=== PATIENT | female | born 1950 | race Hispanic/Latino ===

== ENCOUNTER 2021-07-12 18:09 | Inpatient (IN) | payer OTHER, MEDICARE ==
[~2021-07-12] VITALS: Ht 152.4 cm; Wt 68.1 kg
[~2021-07-12 18:09] MED LIST: DIAZ2.5K2 PO; ESOM40CA PO; FESO8TAB PO; GABA-529 PO; SERT-440 PO; TRAZ-187 PO
[2021-07-12] MEDS ORDERED: HALOPERIDOL INJ 5 MG/ML VIAL ONE (18:21)
[2021-07-12] MEDS ORDERED: DiphenhydrAMINE HCL 50 MG/ML VIAL ONE (18:21)
[2021-07-12] MEDS ORDERED: LORAZEPAM 2 MG/ML 1 ML VIAL ONE (18:22)
[2021-07-12] MEDS ORDERED: LORAZEPAM 2 MG/ML 1 ML VIAL IVP ONE ×2 (18:30→19:00)
[2021-07-12] MEDS ORDERED: HALOPERIDOL INJ 5 MG/ML VIAL IM SCH (18:30)
[2021-07-12] MEDS ORDERED: DiphenhydrAMINE HCL 50 MG/ML VIAL IV ONE (18:30)
[2021-07-12 20:10] LABS: BASOPHILS % (AUTO) 0.2 % (0.0-5.0); EOSINOPHILS % (AUTO) 0.3 % (0.0-8.0); HEMATOCRIT 32.3 % (36-48); MEAN CORPUSCULAR HEMOGLOBIN 31.2 pg (27.0-33.0); MEAN CORPUSCULAR HGB CONC 34.7 g/dL (32.0-36.0); MONOCYTES % (AUTO) 7.8 % (3.0-13.0); NEUTROPHILS % (AUTO) 78.4 % (40.0-77.0); PLATELET COUNT (AUTO) 329 K/uL (130-400); RED BLOOD CELL COUNT(AUTO) 3.59 MIL/uL (4.00-5.50); RED CELL DISTRIBUTION WIDTH 13.1 % (11.0-15.5); WHITE BLOOD COUNT (AUTO) 13.6 K/uL (4.8-10.8)
[2021-07-12 20:25] LABS: INR 1.01 (0.85-1.15)
[2021-07-12 20:32] LABS: CREATININE 0.9 mg/dL (0.5-1.5)
[2021-07-12 20:37] LABS: ALBUMIN 3.7 g/dL (3.5-5.0); BILIRUBIN,TOTAL 0.5 mg/dL (0.2-1.0); TOTAL PROTEIN, SERUM 6.7 g/dL (6.0-8.3)
[2021-07-12 21:16] LABS: ACETAMINOPHEN 4 mcg/mL (10-30)
[2021-07-12 21:17] LABS: SALICYLATE < 2.8 mg/dL (2.8-20.0)
[2021-07-12 21:23] LABS: AMMONIA 11 umol/L (11-32)
[2021-07-12 22:03] LABS: APPEARANCE,URINE Clear (CLEAR); BILIRUBIN,URINE Negative (NEGATIVE); COLOR,URINE Yellow (YELLOW); GLUCOSE, URINE (UA) Negative (NEGATIVE); KETONES,URINE Trace mg/dL (NEGATIVE); LEUKOCYTE ESTERASE ,URINE Negative (NEGATIVE); NITRATE,URINE Negative (NEGATIVE); OCCULT BLOOD,URINE Trace (NEGATIVE); PH,URINE 5.5 (5.0-8.0); PROTEIN,URINE Negative (NEGATIVE)
[2021-07-12 22:10] LABS: AMPHET/METH SCREEN,URINE NEGATIVE (NEGATIVE); BARBITURATE SCREEN, URINE NEGATIVE (NEGATIVE); BENZODIAZEPINES SCREEN,URINE NEGATIVE (NEGATIVE); CANNABINOID SCREEN,URINE POSITIVE (NEGATIVE); COCAINE SCREEN,URINE NEGATIVE (NEGATIVE); OPIATE SCREEN,URINE NEGATIVE (NEGATIVE); PHENCYCLIDINE SCREEN,URINE NEGATIVE (NEGATIVE)
[2021-07-12 22:15] LABS: BACTERIA,URINE Rare /HPF (None Seen); MUCUS,URINE Rare LPF (None Seen); SQUAMOUS EPITHELIAL CELL,UR Rare /HPF (0-2); WBC,URINE 0-1 /HPF (0-1)
[2021-07-13] MEDS ORDERED: DONE23TA14 PO (09:27)
[2021-07-13] MEDS ORDERED: MULT-1290 PO (09:27)
[2021-07-13] MEDS ORDERED: ASPI-1114 PO (09:27)
[2021-07-13] MEDS ORDERED: LOSA25TA41 PO (09:27)
[2021-07-13] MEDS ORDERED: METF-444 PO (09:27)
[2021-07-13] MEDS ORDERED: CITA10TA7 PO (09:27)
[2021-07-13] MEDS ORDERED: LORA-192 PO (09:27)
[2021-07-13] MEDS ORDERED: MIRT15TA2 PO (09:27)
[2021-07-13 14:30] VITALS: BP 119/52
[2021-07-13] MEDS ORDERED: 0.9%NACL 1000ML 1,000 ML IV ONE (14:46)
[2021-07-13] MEDS ORDERED: NITROGLYCERIN 0.4 MG SL TAB SL PRN (15:00)
[2021-07-13] MEDS ORDERED: ACETAMINOPHEN 325 MG TAB PO PRN ×2 (15:00)
[2021-07-13] MEDS ORDERED: LACTULOSE 20 GM/30 ML UDCUP PO PRN (15:00)
[2021-07-13] MEDS ORDERED: ONDANSETRON 4MG INJ IV PRN (15:00)
[2021-07-13] MEDS ORDERED: HYDROXYZINE 25 MG TABLET PO PRN (15:00)
[2021-07-13] MEDS: SODIUM BICARB 8.4% 50ML SYRING 150 MEQ in DEXTROSE 5%-WATER 1,000 ML IV SCH (15:41)
[2021-07-13] MEDS ORDERED: IOHEXOL-350 75 ML VIAL IV ONE (16:12)
[2021-07-13] MEDS ORDERED: IOHEXOL-350 50ML VIAL IV ONE (16:12)
[2021-07-13] MEDS: INSULIN HUMULIN R 100 UNIT/ML 3ML SQ SCH ×2 (16:30→20:49)
[2021-07-13 19:00] VITALS: BP 144/64
[2021-07-13] MEDS: FAMOTIDINE 20MG TAB PO SCH (20:31)
[2021-07-13] MEDS: LORAZEPAM 1 MG TABLET PO SCH (20:31)
[2021-07-13] MEDS: OLANZAPINE ODT 5 MG TAB SL SCH (20:31)
[2021-07-13] MEDS: DONEPEZIL HCL 23 MG PO SCH (20:36)
[2021-07-13] MEDS ORDERED: TRAZODONE HCL 50 MG TAB PO SCH (21:00)
[2021-07-14] MEDS ORDERED: ZOLPIDEM TARTRATE 5 MG TAB ONE (01:43)
[2021-07-14] MEDS: SODIUM BICARB 8.4% 50ML SYRING 150 MEQ in DEXTROSE 5%-WATER 1,000 ML IV SCH ×3 (01:50→18:36)
[2021-07-14] MEDS ORDERED: ZOLPIDEM TARTRATE 5 MG TAB PO PRN (02:00)
[2021-07-14 04:59] LABS: MEAN CORPUSCULAR HEMOGLOBIN 30.7 pg (27.0-33.0); MEAN CORPUSCULAR VOLUME 90.4 fL (79-99); RED BLOOD CELL COUNT(AUTO) 3.32 MIL/uL (4.00-5.50); RED CELL DISTRIBUTION WIDTH 13.2 % (11.0-15.5); WHITE BLOOD COUNT (AUTO) 6.9 K/uL (4.8-10.8)
[2021-07-14 05:20] LABS: HEMOGLOBIN A1C 5.8 % (4.0-6.0)
[2021-07-14 05:22] LABS: CREATININE 0.7 mg/dL (0.5-1.5); POTASSIUM 3.3 mmol/L (3.5-5.1); THYROID STIMULATING HORMONE 2.61 uIU/mL (0.36-3.74)
[2021-07-14] MEDS: INSULIN HUMULIN R 100 UNIT/ML 3ML SQ SCH ×4 (06:23→20:56)
[2021-07-14] MEDS: OLANZAPINE ODT 5 MG TAB SL SCH (08:25)
[2021-07-14] MEDS: LOSARTAN 25 MG TABLET PO SCH (08:25)
[2021-07-14] MEDS: FAMOTIDINE 20MG TAB PO SCH ×2 (08:26→20:57)
[2021-07-14] MEDS: LORAZEPAM 1 MG TABLET PO SCH ×2 (08:26→13:05)
[2021-07-14] MEDS: MULTIVITAMIN TABLET PO SCH (08:26)
[2021-07-14] MEDS: CITALOPRAM 20 MG TABLET PO SCH (08:26)
[2021-07-14] MEDS ORDERED: DiphenhydrAMINE HCL 50 MG/ML VIAL ONE ×2 (10:53→12:37)
[2021-07-14] MEDS ORDERED: HALOPERIDOL INJ 5 MG/ML VIAL ONE ×2 (10:53→12:37)
[2021-07-14] MEDS: HALOPERIDOL INJ 5 MG/ML VIAL IM SCH ×2 (11:00→11:58)
[2021-07-14] MEDS ORDERED: 0.9%NACL 1000ML 1,000 ML IV SCH (11:00)
[2021-07-14] MEDS ORDERED: DiphenhydrAMINE HCL 50 MG/ML VIAL IM SCH (11:00)
[2021-07-14] MEDS ORDERED: HALOPERIDOL INJ 5 MG/ML VIAL IM SCH (11:00)
[2021-07-14] MEDS: CEFTRIAXONE 1G VIAL IVP SCH (11:00)
[2021-07-14] MEDS: DiphenhydrAMINE HCL 50 MG/ML VIAL IM SCH ×2 (11:00→11:58)
[2021-07-14] MEDS ORDERED: HYDROXYZINE 25 MG TABLET ONE (11:42)
[2021-07-14] MEDS ORDERED: RISPERIDONE 1 MG TABLET ONE (11:42)
[2021-07-14] MEDS: HYDROXYZINE 25 MG TABLET PO SCH ×2 (11:45→20:57)
[2021-07-14] MEDS ORDERED: DiphenhydrAMINE HCL 50 MG/ML VIAL IM ONE (13:00)
[2021-07-14] MEDS ORDERED: HALOPERIDOL INJ 5 MG/ML VIAL IM ONE (13:00)
[2021-07-14] MEDS ORDERED: HYDROXYZINE 25 MG TABLET PO SCH (14:00)
[2021-07-14] MEDS ORDERED: RISPERIDONE 1 MG TABLET PO SCH ×2 (14:00)
[2021-07-14 20:18] VITALS: BP 163/83
[2021-07-14] MEDS: TRAZODONE HCL 50 MG TAB PO SCH (20:57)
[2021-07-14] MEDS: DONEPEZIL HCL 23 MG PO SCH (21:00)
[2021-07-14 23:57] VITALS: BP 162/76
[2021-07-15] MEDS: SODIUM BICARB 8.4% 50ML SYRING 150 MEQ in DEXTROSE 5%-WATER 1,000 ML IV SCH (02:38)
[2021-07-15] MEDS: HYDROXYZINE 25 MG TABLET PO SCH (05:16)
[2021-07-15 05:49] LABS: BASOPHILS % (AUTO) 0.4 % (0.0-5.0); EOSINOPHILS % (AUTO) 0.9 % (0.0-8.0); HEMATOCRIT 30.5 % (36-48); LYMPHOCYTES % (AUTO) 15.7 % (21.0-51.0); MEAN CORPUSCULAR HEMOGLOBIN 30.9 pg (27.0-33.0); MEAN CORPUSCULAR HGB CONC 33.8 g/dL (32.0-36.0); MEAN CORPUSCULAR VOLUME 91.6 fL (79-99); MONOCYTES % (AUTO) 8.7 % (3.0-13.0); NEUTROPHILS % (AUTO) 74.1 % (40.0-77.0); PLATELET COUNT (AUTO) 232 K/uL (130-400); RED BLOOD CELL COUNT(AUTO) 3.33 MIL/uL (4.00-5.50); RED CELL DISTRIBUTION WIDTH 13.2 % (11.0-15.5); WHITE BLOOD COUNT (AUTO) 4.6 K/uL (4.8-10.8)
[2021-07-15] MEDS: INSULIN HUMULIN R 100 UNIT/ML 3ML SQ SCH ×4 (05:51→20:10)
[2021-07-15 08:00] VITALS: BP 141/83
[2021-07-15 08:25] LABS: ALBUMIN 3.1 g/dL (3.5-5.0); BILIRUBIN,TOTAL 0.6 mg/dL (0.2-1.0); CREATININE 0.6 mg/dL (0.5-1.5); TOTAL PROTEIN, SERUM 5.9 g/dL (6.0-8.3)
[2021-07-15 08:44] LABS: POTASSIUM 2.7 mmol/L (3.5-5.1)
[2021-07-15] MEDS ORDERED: KCL 20 MEQ ERTAB PO ONE ×2 (09:11→09:17)
[2021-07-15] MEDS ORDERED: POTASSIUM CHLORIDE 20MEQ/100ML 100 ML IV ONE (09:13)
[2021-07-15] MEDS: FAMOTIDINE 20MG TAB PO SCH ×2 (09:18→20:08)
[2021-07-15] MEDS: MULTIVITAMIN TABLET PO SCH (09:18)
[2021-07-15] MEDS: CITALOPRAM 20 MG TABLET PO SCH (09:18)
[2021-07-15] MEDS: DONEPEZIL HCL 5 MG TAB PO SCH (09:18)
[2021-07-15] MEDS: LOSARTAN 25 MG TABLET PO SCH (09:20)
[2021-07-15] MEDS ORDERED: MAGNESIUM 2GM PREMIX 50ML 50 ML IV SCH (09:30)
[2021-07-15] MEDS ORDERED: LIDOCAINE HCL-MPF 1% 2ML VIAL IV PRN (09:30)
[2021-07-15] MEDS ORDERED: POTASSIUM CHLORIDE 10% ELIXIR 20 MEQ/15 ML UDCUP PO PRN (09:30)
[2021-07-15] MEDS ORDERED: KCL 20 MEQ ERTAB PO PRN (09:30)
[2021-07-15] MEDS: 0.9%NACL 1000ML 1,000 ML IV SCH ×2 (09:30→17:30)
[2021-07-15] MEDS: BENZTROPINE 0.5MG TAB PO SCH ×2 (11:20→20:08)
[2021-07-15] MEDS: CEFTRIAXONE 1G VIAL IVP SCH (11:20)
[2021-07-15 12:00] VITALS: BP 123/59
[2021-07-15] MEDS: POTASSIUM CHLORIDE 20MEQ/100ML 100 ML IV PRN (14:08)
[2021-07-15 16:00] VITALS: BP 122/53
[2021-07-15 20:00] VITALS: BP 121/69
[2021-07-15] MEDS: TRAZODONE HCL 50 MG TAB PO SCH (20:08)
[2021-07-15] MEDS: DONEPEZIL HCL 23 MG PO SCH (20:10)
[2021-07-15 23:48] VITALS: BP 144/75
[2021-07-16] MEDS: 0.9%NACL 1000ML 1,000 ML IV SCH ×3 (00:33→18:23)
[2021-07-16] MEDS: POTASSIUM CHLORIDE 20MEQ/100ML 100 ML IV PRN (01:46)
[2021-07-16 04:00] VITALS: BP 144/70
[2021-07-16] MEDS: INSULIN HUMULIN R 100 UNIT/ML 3ML SQ SCH ×4 (05:40→19:58)
[2021-07-16 05:50] LABS: BASOPHILS % (AUTO) 0.2 % (0.0-5.0); EOSINOPHILS % (AUTO) 0.8 % (0.0-8.0); HEMATOCRIT 27.2 % (36-48); LYMPHOCYTES % (AUTO) 14.6 % (21.0-51.0); MEAN CORPUSCULAR HEMOGLOBIN 30.7 pg (27.0-33.0); MEAN CORPUSCULAR HGB CONC 33.5 g/dL (32.0-36.0); MEAN CORPUSCULAR VOLUME 91.9 fL (79-99); MONOCYTES % (AUTO) 10.2 % (3.0-13.0); NEUTROPHILS % (AUTO) 73.8 % (40.0-77.0); PLATELET COUNT (AUTO) 214 K/uL (130-400); RED BLOOD CELL COUNT(AUTO) 2.96 MIL/uL (4.00-5.50); RED CELL DISTRIBUTION WIDTH 13.3 % (11.0-15.5); WHITE BLOOD COUNT (AUTO) 4.7 K/uL (4.8-10.8)
[2021-07-16 06:29] LABS: ALBUMIN 2.5 g/dL (3.5-5.0); BILIRUBIN,TOTAL 0.5 mg/dL (0.2-1.0); CREATININE 0.6 mg/dL (0.5-1.5); POTASSIUM 3.8 mmol/L (3.5-5.1); TOTAL PROTEIN, SERUM 5.2 g/dL (6.0-8.3)
[2021-07-16 08:00] VITALS: BP 138/90
[2021-07-16] MEDS: BENZTROPINE 0.5MG TAB PO SCH ×2 (08:08→20:28)
[2021-07-16] MEDS: CITALOPRAM 20 MG TABLET PO SCH (08:09)
[2021-07-16] MEDS: DONEPEZIL HCL 5 MG TAB PO SCH (08:09)
[2021-07-16] MEDS: MULTIVITAMIN TABLET PO SCH (08:09)
[2021-07-16] MEDS: LOSARTAN 25 MG TABLET PO SCH (08:09)
[2021-07-16] MEDS: FAMOTIDINE 20MG TAB PO SCH ×2 (08:09→20:27)
[2021-07-16] MEDS: CEFTRIAXONE 1G VIAL IVP SCH (11:46)
[2021-07-16] MEDS: FLUOXETINE HCL 10 MG CAPSULE PO SCH (15:00)
[2021-07-16] MEDS: ARTIFICAL TEARS SOL 15 ML OU SCH (15:36)
[2021-07-16 20:06] VITALS: BP 154/76
[2021-07-16] MEDS: TRAZODONE HCL 50 MG TAB PO SCH (20:27)
[2021-07-16] MEDS: DONEPEZIL HCL 23 MG PO SCH (20:28)
[2021-07-16 23:29] VITALS: BP 129/53
[2021-07-17] MEDS: 0.9%NACL 1000ML 1,000 ML IV SCH (00:43)
[2021-07-17 03:34] VITALS: BP 124/74
[2021-07-17 04:52] LABS: BASOPHILS % (AUTO) 0.4 % (0.0-5.0); EOSINOPHILS % (AUTO) 2.1 % (0.0-8.0); HEMATOCRIT 30.1 % (36-48); LYMPHOCYTES % (AUTO) 12.5 % (21.0-51.0); MEAN CORPUSCULAR HEMOGLOBIN 30.2 pg (27.0-33.0); MEAN CORPUSCULAR HGB CONC 32.6 g/dL (32.0-36.0); MEAN CORPUSCULAR VOLUME 92.9 fL (79-99); MONOCYTES % (AUTO) 8.4 % (3.0-13.0); NEUTROPHILS % (AUTO) 76.2 % (40.0-77.0); PLATELET COUNT (AUTO) 231 K/uL (130-400); RED BLOOD CELL COUNT(AUTO) 3.24 MIL/uL (4.00-5.50); RED CELL DISTRIBUTION WIDTH 13.2 % (11.0-15.5); WHITE BLOOD COUNT (AUTO) 5.4 K/uL (4.8-10.8)
[2021-07-17 05:04] LABS: ALBUMIN 2.5 g/dL (3.5-5.0); BILIRUBIN,TOTAL 0.6 mg/dL (0.2-1.0); CREATININE 0.5 mg/dL (0.5-1.5); POTASSIUM 3.6 mmol/L (3.5-5.1); TOTAL PROTEIN, SERUM 5.5 g/dL (6.0-8.3)
[2021-07-17] MEDS: INSULIN HUMULIN R 100 UNIT/ML 3ML SQ SCH ×4 (05:17→21:00)
[2021-07-17 08:07] VITALS: BP 123/63
[2021-07-17] MEDS ORDERED: FLUOXETINE HCL 10 MG CAPSULE PO SCH (09:00)
[2021-07-17] MEDS: ARTIFICAL TEARS SOL 15 ML OU SCH (09:05)
[2021-07-17] MEDS: BENZTROPINE 0.5MG TAB PO SCH ×2 (09:06→21:21)
[2021-07-17] MEDS: MULTIVITAMIN TABLET PO SCH (09:06)
[2021-07-17] MEDS: DONEPEZIL HCL 5 MG TAB PO SCH (09:06)
[2021-07-17] MEDS: CITALOPRAM 20 MG TABLET PO SCH (09:06)
[2021-07-17] MEDS: FAMOTIDINE 20MG TAB PO SCH ×2 (09:06→21:21)
[2021-07-17] MEDS: LOSARTAN 25 MG TABLET PO SCH (09:06)
[2021-07-17] MEDS ORDERED: 0.9%NACL 1000ML 1,000 ML IV ONE (09:17)
[2021-07-17] MEDS: CEFTRIAXONE 1G VIAL IVP SCH (11:00)
[2021-07-17 11:30] VITALS: BP 140/48
[2021-07-17] MEDS: FLUOXETINE HCL 10 MG CAPSULE PO SCH (14:30)
[2021-07-17 16:52] VITALS: BP 122/65
[2021-07-17 20:30] VITALS: BP 134/68
[2021-07-17] MEDS: DONEPEZIL HCL 23 MG PO SCH (21:00)
[2021-07-17] MEDS: TRAZODONE HCL 50 MG TAB PO SCH (21:21)
[2021-07-17 23:35] VITALS: BP 112/74
[2021-07-18 03:32] VITALS: BP 128/78
[2021-07-18 06:37] LABS: BASOPHILS % (AUTO) 0.4 % (0.0-5.0); HEMATOCRIT 28.8 % (36-48); LYMPHOCYTES % (AUTO) 16.2 % (21.0-51.0); MEAN CORPUSCULAR HEMOGLOBIN 30.4 pg (27.0-33.0); MONOCYTES % (AUTO) 10.5 % (3.0-13.0); NEUTROPHILS % (AUTO) 69.3 % (40.0-77.0); PLATELET COUNT (AUTO) 234 K/uL (130-400); RED BLOOD CELL COUNT(AUTO) 3.13 MIL/uL (4.00-5.50); RED CELL DISTRIBUTION WIDTH 13.3 % (11.0-15.5); WHITE BLOOD COUNT (AUTO) 4.9 K/uL (4.8-10.8)
[2021-07-18 06:47] LABS: CREATININE 0.6 mg/dL (0.5-1.5); MAGNESIUM 1.5 mg/dL (1.80-2.40)
[2021-07-18] MEDS: INSULIN HUMULIN R 100 UNIT/ML 3ML SQ SCH ×2 (07:30→11:30)
[2021-07-18 08:20] VITALS: BP 142/40
[2021-07-18] MEDS: ARTIFICAL TEARS SOL 15 ML OU SCH (09:00)
[2021-07-18] MEDS ORDERED: FLUOXETINE HCL 10 MG CAPSULE PO SCH (09:00)
[2021-07-18] MEDS: BENZTROPINE 0.5MG TAB PO SCH (09:44)
[2021-07-18] MEDS: CITALOPRAM 20 MG TABLET PO SCH (09:45)
[2021-07-18] MEDS: FAMOTIDINE 20MG TAB PO SCH (09:46)
[2021-07-18] MEDS: MULTIVITAMIN TABLET PO SCH (09:46)
[2021-07-18] MEDS: LOSARTAN 25 MG TABLET PO SCH (09:47)
[2021-07-18] MEDS: DONEPEZIL HCL 5 MG TAB PO SCH (09:47)
[2021-07-18 11:32] VITALS: BP 142/67
[2021-07-18] MEDS ORDERED: DONE10TA43 PO (13:05)
[2021-07-18] MEDS ORDERED: FLUO40CA7 PO (13:05)
[2021-07-18] MEDS ORDERED: BENZ2TAB10 PO (13:05)
[2021-07-18] MEDS ORDERED: TRAZ-253 PO (13:05)
[2021-07-18] MEDS: FLUOXETINE HCL 10 MG CAPSULE PO SCH (14:30)
[2021-07-18] MEDS: CEFTRIAXONE 1G VIAL IVP SCH (14:37)
[2021-07-18 16:29] VITALS: BP 164/50
== END 2021-07-18 17:30 | disposition home or self-care (01) | DRG 558 ==
LOC: EDH 18:09 → OBSVTOIN 07-13 14:48 → EDHIP 07-13 14:48 → 3AH 07-13 17:23
PROVIDERS: ADMIT Internal Medicine; ATTEND Internal Medicine
DX: M62.82 Rhabdomyolysis (principal); F03.91 Unspecified dementia, unspecified severity, with behavioral disturbance; S92.312A Displaced fracture of first metatarsal bone, left foot, initial encounter for closed fracture; S92.322A Displaced fracture of second metatarsal bone, left foot, initial encounter for closed fracture; S92.332A Displaced fracture of third metatarsal bone, left foot, initial encounter for closed fracture; R45.1 Restlessness and agitation; R29.6 Repeated falls; E11.9 Type 2 diabetes mellitus without complications; I10 Essential (primary) hypertension; M85.80 Other specified disorders of bone density and structure, unspecified site; F32.9 Major depressive disorder, single episode, unspecified; F41.0 Panic disorder [episodic paroxysmal anxiety]; F41.1 Generalized anxiety disorder; G25.81 Restless legs syndrome; Z20.822 Contact with and (suspected) exposure to COVID-19; D64.9 Anemia, unspecified; F12.90 Cannabis use, unspecified, uncomplicated; D72.829 Elevated white blood cell count, unspecified; Z79.84 Long term (current) use of oral hypoglycemic drugs; Y93.89 Activity, other specified; Y92.89 Other specified places as the place of occurrence of the external cause; Y99.8 Other external cause status; Z79.899 Other long term (current) drug therapy; Z82.3 Family history of stroke; Z83.3 Family history of diabetes mellitus; Z82.0 Family history of epilepsy and other diseases of the nervous system; Z82.5 Family history of asthma and other chronic lower respiratory diseases; Z82.49 Family history of ischemic heart disease and other diseases of the circulatory system
CPT/HCPCS: 36415; 70470; 72133; 73521; 73630; 80048; 80053; 80305; 81001; 82140; 82550; 82948; 83036; 83735; 83874; 84132; 84145; 84443; 84484; 85025; 85027; 85610; 86592; 87635; 97039; G0378; G0481; J0696; J1200; J1630; J2060; J3480; J3490; J7030; J7070; Q9967

== ENCOUNTER 2022-01-26 03:09 | Inpatient (IN) | payer OTHER, MEDICARE ==
[~2022-01-26] VITALS: Ht 149.9 cm; Wt 71.9 kg
[2022-01-26] VITALS (36 sets, daily range): BP systolic 114–182; BP diastolic 54–95
[~2022-01-26 03:09] MED LIST changes: +ASPI-1114 PO; +BENZ2TAB10 PO; -DIAZ2.5K2 PO; +DONE10TA43 PO; -ESOM40CA PO; -FESO8TAB PO; +FLUO40CA7 PO; -GABA-529 PO; +LOSA25TA41 PO; +METF-444 PO; +MULT-1290 PO; -SERT-440 PO; -TRAZ-187 PO; +TRAZ-253 PO
[2022-01-26] MEDS ORDERED: HALOPERIDOL INJ 5 MG/ML VIAL IV ONE (03:30)
[2022-01-26] MEDS ORDERED: DiphenhydrAMINE HCL 50 MG/ML VIAL IV ONE (03:30)
[2022-01-26] MEDS ORDERED: ONDANSETRON 4MG INJ ONE (03:31)
[2022-01-26] MEDS ORDERED: HALOPERIDOL INJ 5 MG/ML VIAL ONE (03:31)
[2022-01-26] MEDS ORDERED: DiphenhydrAMINE HCL 50 MG/ML VIAL ONE (03:31)
[2022-01-26] MEDS ORDERED: LORAZEPAM 2 MG/ML 1 ML VIAL ONE (03:45)
[2022-01-26 03:51] LABS: BASOPHILS % (AUTO) 0.3 % (0.0-5.0); EOSINOPHILS % (AUTO) 0.1 % (0.0-8.0); HEMATOCRIT 32.8 % (36-48); LYMPHOCYTES % (AUTO) 8.3 % (21.0-51.0); MEAN CORPUSCULAR HEMOGLOBIN 30.3 pg (27.0-33.0); MEAN CORPUSCULAR HGB CONC 34.1 g/dL (32.0-36.0); MEAN CORPUSCULAR VOLUME 88.6 fL (79-99); MONOCYTES % (AUTO) 5.9 % (3.0-13.0); NEUTROPHILS % (AUTO) 84.9 % (40.0-77.0); PLATELET COUNT (AUTO) 320 K/uL (130-400); RED CELL DISTRIBUTION WIDTH 13.2 % (11.0-15.5); WHITE BLOOD COUNT (AUTO) 13.9 K/uL (4.8-10.8)
[2022-01-26 03:54] LABS: ABG BASE EXCESS -4.9 mmol/L (-2.0-3.0); ABG HCO3 19.3 mmol/L (21.0-28.0); ABG OXYGEN SATURATION 60.8 % (95.0-99.0); ABG PCO2 33 mmHg (32-45)
[2022-01-26 03:59] LABS: APPEARANCE,URINE Clear (CLEAR); BILIRUBIN,URINE Negative (NEGATIVE); COLOR,URINE Yellow (YELLOW); GLUCOSE, URINE (UA) TRACE mg/dL (NEGATIVE); KETONES,URINE Trace mg/dL (NEGATIVE); LEUKOCYTE ESTERASE ,URINE Negative (NEGATIVE); NITRATE,URINE Negative (NEGATIVE); OCCULT BLOOD,URINE Small (NEGATIVE); PROTEIN,URINE POS 1+ mg/dL (NEGATIVE); UROBILINOGEN,URINE 0.2 mg/dL (0.2-1.0)
[2022-01-26 04:05] LABS: CREATININE 0.8 mg/dL (0.5-1.5); POTASSIUM 3.8 mmol/L (3.5-5.1)
[2022-01-26 04:07] LABS: AMPHET/METH SCREEN,URINE NEGATIVE (NEGATIVE); BARBITURATE SCREEN, URINE NEGATIVE (NEGATIVE); BENZODIAZEPINES SCREEN,URINE NEGATIVE (NEGATIVE); CANNABINOID SCREEN,URINE NEGATIVE (NEGATIVE); COCAINE SCREEN,URINE NEGATIVE (NEGATIVE); OPIATE SCREEN,URINE NEGATIVE (NEGATIVE); PHENCYCLIDINE SCREEN,URINE NEGATIVE (NEGATIVE)
[2022-01-26 04:09] LABS: BACTERIA,URINE Rare /HPF (None Seen); SQUAMOUS EPITHELIAL CELL,UR 0-2 /HPF (0-2); WBC,URINE 0-1 /HPF (0-1)
[2022-01-26 04:10] LABS: ALBUMIN 3.4 g/dL (3.5-5.0); BILIRUBIN,TOTAL 0.3 mg/dL (0.2-1.0); TOTAL PROTEIN, SERUM 6.4 g/dL (6.0-8.3)
[2022-01-26 04:18] LABS: ALCOHOL, BLOOD < 3 mg/dL (0-10)
[2022-01-26 04:21] LABS: ACETAMINOPHEN 122 mcg/mL (10-30); SALICYLATE < 2.8 mg/dL (2.8-20.0)
[2022-01-26] MEDS ORDERED: PROPOFOL 1000 MG/100 ML 100 ML IV ONE (04:42)
[2022-01-26] MEDS: PROPOFOL 1000 MG/100 ML 100 ML IV SCH ×3 (04:54→23:50)
[2022-01-26] MEDS ORDERED: FENTANYL 2500MCG+NS 250ML 250 ML IV ONE (05:02)
[2022-01-26] MEDS: FENTANYL 2500MCG+NS 250ML IV.SOLN IV SCH (05:14)
[2022-01-26] MEDS: MIDAZOLAM 100MG-0.9% NS 100ML 100 ML IV SCH ×2 (05:15→22:15)
[2022-01-26] MEDS ORDERED: ACETAMINOPHEN 650 MG SUPPOSITORY RC ONE (05:30)
[2022-01-26] MEDS ORDERED: 0.9%NACL 1000ML 1,000 ML IV ONE (05:30)
[2022-01-26] MEDS ORDERED: MIDAZOLAM HCL 5 MG/ML 2ML VIAL IV PRN (05:30)
[2022-01-26] MEDS ORDERED: ZOSYN 3.375GM +NS 50ML IV ONE (05:30)
[2022-01-26 05:37] LABS: OCCULT BLOOD,GASTRIC FLUID POSITIVE (NEGATIVE)
[2022-01-26 06:30] LABS: ABG BASE EXCESS -2.8 mmol/L (-2.0-3.0); ABG HCO3 20.9 mmol/L (21.0-28.0); ABG OXYGEN SATURATION 98.6 % (95.0-99.0); ABG PCO2 33 mmHg (32-45)
[2022-01-26] MEDS ORDERED: ZOSYN 3.375GM +NS 50ML IV SCH (06:30)
[2022-01-26] MEDS ORDERED: WATER IV ONE ×2 (06:30)
[2022-01-26] MEDS ORDERED: DEXTROSE 5% IV ONE ×2 (06:30)
[2022-01-26] MEDS ORDERED: ACETYLCYSTEINE IV ONE ×2 (06:30)
[2022-01-26] MEDS ORDERED: PANTOPRAZOLE 40 MG/VIAL IVP SCH (06:30)
[2022-01-26] MEDS ORDERED: ZOSYN 3.375GM+NS 50ML 50 ML ONE (06:32)
[2022-01-26] MEDS ORDERED: DEXTROSE 5% IV SCH ×2 (07:30)
[2022-01-26] MEDS ORDERED: WATER IV SCH ×2 (07:30)
[2022-01-26] MEDS ORDERED: ACETYLCYSTEINE IV SCH ×2 (07:30)
[2022-01-26] MEDS ORDERED: IOHEXOL 350 MG/ML 100ML INFUS..BTL IV ONE (08:01)
[2022-01-26] MEDS ORDERED: VANCOMYCIN PROTOCOL PER PHARMACY IV SCH (09:00)
[2022-01-26] MEDS ORDERED: VANCOMYCIN 1.25 GM/250 ML BAG 250 ML IV SCH (10:00)
[2022-01-26] MEDS ORDERED: PANTOPRAZOLE 40MG INJ 80 MG in 0.9%NACL 100ML 100 ML IVP SCH (11:30)
[2022-01-26] MEDS ORDERED: CITA-107 PO (11:46)
[2022-01-26] MEDS ORDERED: MIRT7.5T11 PO (11:46)
[2022-01-26 13:01] LABS: HEMATOCRIT 30.5 % (36-48); MEAN CORPUSCULAR HEMOGLOBIN 29.7 pg (27.0-33.0); MEAN CORPUSCULAR HGB CONC 33.4 g/dL (32.0-36.0); MEAN CORPUSCULAR VOLUME 88.7 fL (79-99); PLATELET COUNT (AUTO) 206 K/uL (130-400); RED BLOOD CELL COUNT(AUTO) 3.44 MIL/uL (4.00-5.50); RED CELL DISTRIBUTION WIDTH 13.2 % (11.0-15.5)
[2022-01-26 13:10] LABS: CREATININE 0.6 mg/dL (0.5-1.5)
[2022-01-26 13:15] LABS: ALBUMIN 2.6 g/dL (3.5-5.0); BILIRUBIN,TOTAL 0.4 mg/dL (0.2-1.0); MAGNESIUM 1.5 mg/dL (1.80-2.40); PHOSPHORUS 2.6 mg/dL (2.5-4.9); TOTAL PROTEIN, SERUM 5.3 g/dL (6.0-8.3)
[2022-01-26 14:19] LABS: LYMPHOCYTES % (MANUAL) 18 % (22-44); MONOCYTES % (MANUAL) 1 % (2-9); SEGMENTED NEUTROPHILS % 81 % (40-70)
[2022-01-26 14:21] LABS: MAN.DIFF COMMENT-IMPRESSION MANUAL DIFFERENTIAL
[2022-01-26 14:22] LABS: PLATELET MORPHOLOGY COMMENT ADEQUATE
[2022-01-26] MEDS: CEFEPIME HCL 2 GM VIAL IVP SCH ×2 (15:54→22:14)
[2022-01-26 15:57] LABS: INR 1.2 (0.85-1.15); PROTHROMBIN TIME 12.9 SEC (9.6-11.6)
[2022-01-26] MEDS: MAGNESIUM 2GM PREMIX 50ML 50 ML IV PRN (17:32)
[2022-01-26] MEDS: POTASSIUM CHLORIDE 20MEQ/100ML 100 ML IV PRN ×2 (17:33→22:41)
[2022-01-26] MEDS: LACTATED RINGERS 1000ML 1,000 ML IV SCH (17:51)
[2022-01-26 19:09] LABS: HEMATOCRIT 37.6 % (36-48)
[2022-01-26] MEDS: PANTOPRAZOLE 40 MG/VIAL IVP SCH (20:07)
[2022-01-26] MEDS ORDERED: FAMOTIDINE 20MG VIAL IV SCH (21:00)
[2022-01-27] VITALS (41 sets, daily range): BP systolic 87–158; BP diastolic 34–87
[2022-01-27 03:46] LABS: BASOPHILS % (AUTO) 0.3 % (0.0-5.0); EOSINOPHILS % (AUTO) 0.8 % (0.0-8.0); HEMATOCRIT 31.8 % (36-48); LYMPHOCYTES % (AUTO) 13.7 % (21.0-51.0); MEAN CORPUSCULAR HEMOGLOBIN 30.3 pg (27.0-33.0); MEAN CORPUSCULAR HGB CONC 33.3 g/dL (32.0-36.0); MEAN CORPUSCULAR VOLUME 90.9 fL (79-99); MONOCYTES % (AUTO) 7.4 % (3.0-13.0); NEUTROPHILS % (AUTO) 77.5 % (40.0-77.0); PLATELET COUNT (AUTO) 207 K/uL (130-400); RED CELL DISTRIBUTION WIDTH 13.6 % (11.0-15.5); WHITE BLOOD COUNT (AUTO) 6.5 K/uL (4.8-10.8)
[2022-01-27 03:57] LABS: INR 1.05 (0.85-1.15); PROTHROMBIN TIME 11.4 SEC (9.6-11.6)
[2022-01-27 03:58] LABS: PARTIAL THROMBOPLASTIN TIME 26.2 SEC (26.3-35.5)
[2022-01-27 04:10] LABS: ALBUMIN 2.5 g/dL (3.5-5.0); BILIRUBIN,DIRECT 0.1 mg/dL (0.0-0.3); BILIRUBIN,TOTAL 0.3 mg/dL (0.2-1.0); CREATININE 0.6 mg/dL (0.5-1.5); MAGNESIUM 1.8 mg/dL (1.80-2.40); PHOSPHORUS 2.8 mg/dL (2.5-4.9); POTASSIUM 3.2 mmol/L (3.5-5.1); TOTAL PROTEIN, SERUM 5.3 g/dL (6.0-8.3)
[2022-01-27] MEDS: POTASSIUM CHLORIDE 20MEQ/100ML 100 ML IV PRN ×2 (05:01→08:15)
[2022-01-27] MEDS: CEFEPIME HCL 2 GM VIAL IVP SCH ×3 (05:56→21:44)
[2022-01-27] MEDS: MAGNESIUM 2GM PREMIX 50ML 50 ML IV PRN (05:57)
[2022-01-27 06:56] LABS: ABG BASE EXCESS -5.1 mmol/L (-2.0-3.0); ABG HCO3 18.9 mmol/L (21.0-28.0); ABG OXYGEN SATURATION 98.8 % (95.0-99.0); ABG PCO2 33 mmHg (32-45)
[2022-01-27 06:58] LABS: HEMATOCRIT 32.6 % (36-48)
[2022-01-27] MEDS: PANTOPRAZOLE 40 MG/VIAL IVP SCH ×2 (08:16→20:29)
[2022-01-27] MEDS: VANCOMYCIN 1G/250ML KIT 250 ML IV SCH (09:00)
[2022-01-27] MEDS ORDERED: THIAMINE HCL 100 MG/ML 2ML VIAL IVP SCH (09:00)
[2022-01-27] MEDS ORDERED: DEXMEDETOMIDINE HCL 200 MCG in 0.9%NACL 50ML 50 ML IV SCH (10:00)
[2022-01-27] MEDS: DEXMEDETOMIDINE 400MCG/NS100ML IV SCH ×2 (11:06→22:32)
[2022-01-27] MEDS: LACTATED RINGERS 1000ML 1,000 ML IV SCH ×2 (12:43→20:36)
[2022-01-27] MEDS: FENTANYL 2500MCG+NS 250ML IV.SOLN IV SCH (12:56)
[2022-01-27] MEDS: SUCRALFATE 1 GM TABLET NG SCH ×2 (17:41→23:22)
[2022-01-27] MEDS: PROPOFOL 1000 MG/100 ML 100 ML IV SCH (22:33)
[2022-01-28] VITALS (27 sets, daily range): BP systolic 95–173; BP diastolic 37–123
[2022-01-28 04:08] LABS: BASOPHILS % (AUTO) 0.4 % (0.0-5.0); EOSINOPHILS % (AUTO) 1.3 % (0.0-8.0); HEMATOCRIT 30.6 % (36-48); LYMPHOCYTES % (AUTO) 14.3 % (21.0-51.0); MEAN CORPUSCULAR HEMOGLOBIN 29.6 pg (27.0-33.0); MEAN CORPUSCULAR VOLUME 92.4 fL (79-99); MONOCYTES % (AUTO) 8.5 % (3.0-13.0); NEUTROPHILS % (AUTO) 75.1 % (40.0-77.0); PLATELET COUNT (AUTO) 181 K/uL (130-400); RED BLOOD CELL COUNT(AUTO) 3.31 MIL/uL (4.00-5.50); RED CELL DISTRIBUTION WIDTH 13.5 % (11.0-15.5); WHITE BLOOD COUNT (AUTO) 6.9 K/uL (4.8-10.8)
[2022-01-28 04:32] LABS: B-TYPE NATRIURETIC PEPTIDE 16 pg/mL (0-100)
[2022-01-28 04:39] LABS: ALBUMIN 2.3 g/dL (3.5-5.0); BILIRUBIN,TOTAL 0.5 mg/dL (0.2-1.0); CREATININE 0.7 mg/dL (0.5-1.5); MAGNESIUM 1.8 mg/dL (1.80-2.40); PHOSPHORUS 2.5 mg/dL (2.5-4.9); POTASSIUM 3.8 mmol/L (3.5-5.1); TOTAL PROTEIN, SERUM 5.2 g/dL (6.0-8.3)
[2022-01-28] MEDS: SUCRALFATE 1 GM TABLET NG SCH ×4 (05:48→22:41)
[2022-01-28] MEDS: CEFEPIME HCL 2 GM VIAL IVP SCH ×3 (05:48→21:57)
[2022-01-28] MEDS: DEXMEDETOMIDINE 400MCG/NS100ML IV SCH ×4 (07:32→21:57)
[2022-01-28] MEDS: PANTOPRAZOLE 40 MG/VIAL IVP SCH ×2 (08:15→21:07)
[2022-01-28] MEDS: FENTANYL 2500MCG+NS 250ML IV.SOLN IV SCH (08:53)
[2022-01-28] MEDS: VANCOMYCIN 1G/250ML KIT 250 ML IV SCH (09:22)
[2022-01-28] MEDS ORDERED: 0.9% NACL 250ML 250 ML IV SCH (09:30)
[2022-01-28] MEDS: LACTATED RINGERS 1000ML 1,000 ML IV SCH ×2 (11:06→18:09)
[2022-01-28] MEDS ORDERED: LORAZEPAM 2 MG/ML 1 ML VIAL IVP SCH (15:29)
[2022-01-28] MEDS: ZIPRASIDONE MESYLATE 20 MG/VIAL IM SCH (17:30)
[2022-01-28] MEDS ORDERED: RACEPINEPHRINE HCL 2.25% 0.5 ML NEB SOLN ONE (19:01)
[2022-01-28] MEDS ORDERED: VANCOMYCIN 750MG VIAL IVPB SCH (21:00)
[2022-01-28] MEDS ORDERED: RACEPINEPHRINE HCL 2.25% 0.5 ML NEB SOLN NEB PRN (22:00)
[2022-01-28] MEDS ORDERED: SOLU-MEDROL 125MG VIAL IVP ONE (22:00)
[2022-01-28] MEDS: SOLU-MEDROL 40MG VIAL IVP SCH (22:00)
[2022-01-28] MEDS: IPRATROPIUM/ALBUTEROL SULFATE 3 ML SOLUTION IH SCH (23:39)
[2022-01-28] MEDS: LORAZEPAM 2 MG/ML 1 ML VIAL IVP PRN (23:50)
[2022-01-29] VITALS (19 sets, daily range): BP systolic 115–173; BP diastolic 38–104
[2022-01-29] MEDS: DEXMEDETOMIDINE 400MCG/NS100ML IV SCH (03:24)
[2022-01-29 03:43] LABS: BASOPHILS % (AUTO) 0.3 % (0.0-5.0); EOSINOPHILS % (AUTO) 0.2 % (0.0-8.0); HEMATOCRIT 29.3 % (36-48); LYMPHOCYTES % (AUTO) 3.5 % (21.0-51.0); MEAN CORPUSCULAR HEMOGLOBIN 30.3 pg (27.0-33.0); MEAN CORPUSCULAR HGB CONC 33.8 g/dL (32.0-36.0); MEAN CORPUSCULAR VOLUME 89.6 fL (79-99); MONOCYTES % (AUTO) 1.3 % (3.0-13.0); NEUTROPHILS % (AUTO) 94.2 % (40.0-77.0); PLATELET COUNT (AUTO) 174 K/uL (130-400); RED BLOOD CELL COUNT(AUTO) 3.27 MIL/uL (4.00-5.50); RED CELL DISTRIBUTION WIDTH 12.9 % (11.0-15.5); WHITE BLOOD COUNT (AUTO) 5.9 K/uL (4.8-10.8)
[2022-01-29 04:29] LABS: ALBUMIN 2.4 g/dL (3.5-5.0); BILIRUBIN,TOTAL 0.6 mg/dL (0.2-1.0); CREATININE 0.6 mg/dL (0.5-1.5); MAGNESIUM 1.4 mg/dL (1.80-2.40); POTASSIUM 4.3 mmol/L (3.5-5.1); TOTAL PROTEIN, SERUM 5.7 g/dL (6.0-8.3)
[2022-01-29] MEDS: SUCRALFATE 1 GM TABLET NG SCH ×4 (05:00→23:00)
[2022-01-29] MEDS: ZIPRASIDONE MESYLATE 20 MG/VIAL IM SCH ×5 (06:00→23:46)
[2022-01-29] MEDS: SOLU-MEDROL 40MG VIAL IVP SCH ×2 (06:11→13:38)
[2022-01-29] MEDS: CEFEPIME HCL 2 GM VIAL IVP SCH ×3 (06:15→21:49)
[2022-01-29] MEDS: IPRATROPIUM/ALBUTEROL SULFATE 3 ML SOLUTION IH SCH ×4 (06:24→23:35)
[2022-01-29] MEDS: LORAZEPAM 2 MG/ML 1 ML VIAL IVP PRN ×2 (08:13→13:38)
[2022-01-29] MEDS: MAGNESIUM 2GM PREMIX 50ML 50 ML IV PRN (08:14)
[2022-01-29] MEDS: PANTOPRAZOLE 40 MG/VIAL IVP SCH ×2 (12:47→20:08)
[2022-01-29] MEDS ORDERED: FENTANYL CITRATE PF 50 MCG/1 ML 2ML VIAL IVP PRN (15:00)
[2022-01-29] MEDS: 0.9%NACL 1000ML 1,000 ML IV SCH (20:08)
[2022-01-29] MEDS: LORAZEPAM 2 MG/ML 1 ML VIAL IM PRN (20:40)
[2022-01-30] VITALS (17 sets, daily range): BP systolic 117–182; BP diastolic 35–100
[2022-01-30] MEDS: ZIPRASIDONE MESYLATE 20 MG/VIAL IM SCH (02:42)
[2022-01-30] MEDS: SUCRALFATE 1 GM TABLET NG SCH ×4 (02:43→23:07)
[2022-01-30] MEDS: LORAZEPAM 2 MG/ML 1 ML VIAL IM PRN (03:41)
[2022-01-30 03:47] LABS: BASOPHILS % (AUTO) 0.1 % (0.0-5.0); LYMPHOCYTES % (AUTO) 2.4 % (21.0-51.0); MEAN CORPUSCULAR HEMOGLOBIN 29.8 pg (27.0-33.0); MEAN CORPUSCULAR HGB CONC 34.2 g/dL (32.0-36.0); MONOCYTES % (AUTO) 4.2 % (3.0-13.0); NEUTROPHILS % (AUTO) 92.7 % (40.0-77.0); PLATELET COUNT (AUTO) 231 K/uL (130-400); RED BLOOD CELL COUNT(AUTO) 2.99 MIL/uL (4.00-5.50); RED CELL DISTRIBUTION WIDTH 12.9 % (11.0-15.5); WHITE BLOOD COUNT (AUTO) 12.3 K/uL (4.8-10.8)
[2022-01-30 04:18] LABS: ALBUMIN 2.6 g/dL (3.5-5.0); BILIRUBIN,TOTAL 0.7 mg/dL (0.2-1.0); CREATININE 0.6 mg/dL (0.5-1.5); MAGNESIUM 1.5 mg/dL (1.80-2.40); PHOSPHORUS 2.6 mg/dL (2.5-4.9); POTASSIUM 3.4 mmol/L (3.5-5.1); THYROID STIMULATING HORMONE 0.66 uIU/mL (0.36-3.74); TOTAL PROTEIN, SERUM 5.8 g/dL (6.0-8.3)
[2022-01-30] MEDS: CEFEPIME HCL 2 GM VIAL IVP SCH ×3 (06:12→21:29)
[2022-01-30] MEDS: IPRATROPIUM/ALBUTEROL SULFATE 3 ML SOLUTION IH SCH ×4 (06:41→23:47)
[2022-01-30] MEDS: MAGNESIUM 2GM PREMIX 50ML 50 ML IV PRN ×2 (07:28→12:19)
[2022-01-30] MEDS: POTASSIUM CHLORIDE 20MEQ/100ML 100 ML IV PRN (07:35)
[2022-01-30] MEDS: 0.9%NACL 1000ML 1,000 ML IV SCH (07:35)
[2022-01-30] MEDS: PANTOPRAZOLE 40 MG/VIAL IVP SCH ×2 (08:38→19:54)
[2022-01-30] MEDS: METOPROLOL TARTRATE 1 MG/ML 5ML VIAL IV PRN (09:09)
[2022-01-30] MEDS ORDERED: LORAZEPAM 2 MG/ML 1 ML VIAL IVP PRN (14:30)
[2022-01-30] MEDS: HALOPERIDOL INJ 5 MG/ML VIAL IV PRN (21:16)
[2022-01-31 04:22] VITALS: BP 158/82
[2022-01-31 04:38] LABS: BASOPHILS % (AUTO) 0.1 % (0.0-5.0); EOSINOPHILS % (AUTO) 0.2 % (0.0-8.0); HEMATOCRIT 26.3 % (36-48); LYMPHOCYTES % (AUTO) 7.4 % (21.0-51.0); MEAN CORPUSCULAR HEMOGLOBIN 30.2 pg (27.0-33.0); MEAN CORPUSCULAR HGB CONC 35.7 g/dL (32.0-36.0); MEAN CORPUSCULAR VOLUME 84.6 fL (79-99); MONOCYTES % (AUTO) 7.8 % (3.0-13.0); NEUTROPHILS % (AUTO) 83.5 % (40.0-77.0); PLATELET COUNT (AUTO) 239 K/uL (130-400); RED BLOOD CELL COUNT(AUTO) 3.11 MIL/uL (4.00-5.50); RED CELL DISTRIBUTION WIDTH 13.2 % (11.0-15.5); WHITE BLOOD COUNT (AUTO) 8.7 K/uL (4.8-10.8)
[2022-01-31 04:51] LABS: INR 1.15 (0.85-1.15); PROTHROMBIN TIME 12.4 SEC (9.6-11.6)
[2022-01-31 05:05] LABS: ALBUMIN 2.7 g/dL (3.5-5.0); BILIRUBIN,DIRECT 0.3 mg/dL (0.0-0.3); CREATININE 0.5 mg/dL (0.5-1.5); MAGNESIUM 1.5 mg/dL (1.80-2.40); TOTAL PROTEIN, SERUM 5.9 g/dL (6.0-8.3)
[2022-01-31] MEDS: SUCRALFATE 1 GM TABLET NG SCH ×4 (05:18→21:37)
[2022-01-31] MEDS: CEFEPIME HCL 2 GM VIAL IVP SCH ×3 (06:02→21:38)
[2022-01-31] MEDS: LIDOCAINE HCL-MPF 1% 2ML VIAL IV PRN (06:43)
[2022-01-31] MEDS: POTASSIUM CHLORIDE 20MEQ/100ML 100 ML IV PRN (06:44)
[2022-01-31] MEDS: IPRATROPIUM/ALBUTEROL SULFATE 3 ML SOLUTION IH SCH ×4 (07:12→23:11)
[2022-01-31 08:00] VITALS: BP 198/73
[2022-01-31] MEDS: PANTOPRAZOLE 40 MG/VIAL IVP SCH ×2 (09:55→20:10)
[2022-01-31] MEDS ORDERED: LIDOCAINE HCL-MPF 1% 2ML VIAL IJ PRN (10:00)
[2022-01-31] MEDS ORDERED: POTASSIUM CHLORIDE 20MEQ/100ML 100 ML IV PRN (10:00)
[2022-01-31 12:00] VITALS: BP 182/71
[2022-01-31 16:00] VITALS: BP 140/50
[2022-01-31] MEDS ORDERED: OLANZAPINE 10MG/ML 1ML VIAL IM PRN (16:30)
[2022-01-31 20:00] VITALS: BP 189/85
[2022-01-31] MEDS: OLANZAPINE 5 MG TAB PO PRN (20:10)
[2022-01-31] MEDS: HYDRALAZINE 20MG/ML VIAL IV PRN (21:58)
[2022-02-01] VITALS: BP 183/76
[2022-02-01 04:00] VITALS: BP 156/83
[2022-02-01] MEDS: SUCRALFATE 1 GM TABLET NG SCH ×4 (05:09→21:03)
[2022-02-01 05:38] LABS: HEMATOCRIT 30.9 % (36-48); MEAN CORPUSCULAR HEMOGLOBIN 28.9 pg (27.0-33.0); MEAN CORPUSCULAR HGB CONC 33.3 g/dL (32.0-36.0); MEAN CORPUSCULAR VOLUME 86.8 fL (79-99); RED BLOOD CELL COUNT(AUTO) 3.56 MIL/uL (4.00-5.50); WHITE BLOOD COUNT (AUTO) 8.5 K/uL (4.8-10.8)
[2022-02-01 06:01] LABS: CREATININE 0.5 mg/dL (0.5-1.5)
[2022-02-01 06:02] LABS: POTASSIUM 2.9 mmol/L (3.5-5.1)
[2022-02-01] MEDS: LIDOCAINE HCL-MPF 1% 2ML VIAL IV PRN (06:22)
[2022-02-01] MEDS: POTASSIUM CHLORIDE 20MEQ/100ML 100 ML IV PRN (06:23)
[2022-02-01] MEDS: CEFEPIME HCL 2 GM VIAL IVP SCH ×3 (06:23→21:03)
[2022-02-01] MEDS: IPRATROPIUM/ALBUTEROL SULFATE 3 ML SOLUTION IH SCH ×4 (06:58→23:18)
[2022-02-01 08:00] VITALS: BP 158/59
[2022-02-01] MEDS: KCL 20 MEQ ERTAB PO PRN ×3 (08:37→15:07)
[2022-02-01] MEDS: PANTOPRAZOLE 40 MG/VIAL IVP SCH ×2 (09:05→21:03)
[2022-02-01] MEDS: OLANZAPINE 5 MG TAB PO PRN (09:05)
[2022-02-01] MEDS ORDERED: 0.9%NACL 1000ML 1,000 ML IV SCH (09:30)
[2022-02-01 12:00] VITALS: BP 158/66
[2022-02-01] MEDS: TRYPSIN/BALSAM PERU/CASTOR OIL OINT 60GM TUBE TP SCH ×2 (15:50→21:03)
[2022-02-01 16:00] VITALS: BP 159/68
[2022-02-01] MEDS: LACTATED RINGERS 1000ML 1,000 ML IV SCH (16:48)
[2022-02-01 20:00] VITALS: BP_SYST 142; BP_SYST 191; BP_DIAS 58; BP_DIAS 76
[2022-02-01] MEDS: HYDRALAZINE 20MG/ML VIAL IV PRN (22:08)
[2022-02-02] VITALS (7 sets, daily range): BP systolic 147–176; BP diastolic 64–94
[2022-02-02] MEDS: SUCRALFATE 1 GM TABLET NG SCH ×4 (04:16→22:38)
[2022-02-02] MEDS: CEFEPIME HCL 2 GM VIAL IVP SCH ×3 (04:50→22:38)
[2022-02-02] MEDS: LACTATED RINGERS 1000ML 1,000 ML IV SCH ×3 (04:50→12:18)
[2022-02-02 05:11] LABS: BASOPHILS % (AUTO) 0.3 % (0.0-5.0); EOSINOPHILS % (AUTO) 1.2 % (0.0-8.0); HEMATOCRIT 26.9 % (36-48); MEAN CORPUSCULAR HEMOGLOBIN 30.1 pg (27.0-33.0); MEAN CORPUSCULAR HGB CONC 34.2 g/dL (32.0-36.0); MEAN CORPUSCULAR VOLUME 87.9 fL (79-99); MONOCYTES % (AUTO) 7.7 % (3.0-13.0); NEUTROPHILS % (AUTO) 79.7 % (40.0-77.0); PLATELET COUNT (AUTO) 224 K/uL (130-400); RED BLOOD CELL COUNT(AUTO) 3.06 MIL/uL (4.00-5.50); RED CELL DISTRIBUTION WIDTH 13.2 % (11.0-15.5); WHITE BLOOD COUNT (AUTO) 7.5 K/uL (4.8-10.8)
[2022-02-02] MEDS: HYDRALAZINE 20MG/ML VIAL IV PRN (05:22)
[2022-02-02] MEDS: OLANZAPINE 5 MG TAB PO PRN (05:22)
[2022-02-02 05:31] LABS: ALBUMIN 2.4 g/dL (3.5-5.0); BILIRUBIN,TOTAL 0.7 mg/dL (0.2-1.0); CREATININE 0.5 mg/dL (0.5-1.5)
[2022-02-02 05:36] LABS: POTASSIUM 2.8 mmol/L (3.5-5.1)
[2022-02-02] MEDS: LIDOCAINE HCL-MPF 1% 2ML VIAL IV PRN (06:10)
[2022-02-02] MEDS: POTASSIUM CHLORIDE 20MEQ/100ML 100 ML IV PRN (06:10)
[2022-02-02] MEDS: POTASSIUM CHLORIDE 10% ELIXIR 20 MEQ/15 ML UDCUP PO PRN (06:11)
[2022-02-02] MEDS: IPRATROPIUM/ALBUTEROL SULFATE 3 ML SOLUTION IH SCH ×4 (06:31→23:44)
[2022-02-02] MEDS: PANTOPRAZOLE 40 MG/VIAL IVP SCH ×2 (08:33→20:54)
[2022-02-02] MEDS: METOPROLOL TARTRATE 1 MG/ML 5ML VIAL IV PRN (08:33)
[2022-02-02] MEDS: TRYPSIN/BALSAM PERU/CASTOR OIL OINT 60GM TUBE TP SCH ×2 (08:40→21:00)
[2022-02-02] MEDS: KCL 20 MEQ ERTAB PO PRN ×2 (12:17→17:02)
[2022-02-02] MEDS: HALOPERIDOL INJ 5 MG/ML VIAL IV PRN (20:55)
[2022-02-02] MEDS: BALSAM PERU/CASTOR OIL 60 GM TUBE TP SCH (20:55)
[2022-02-03] VITALS (7 sets, daily range): BP systolic 137–186; BP diastolic 52–97
[2022-02-03] MEDS: LACTATED RINGERS 1000ML 1,000 ML IV SCH ×3 (00:22→19:25)
[2022-02-03] MEDS: KCL 20 MEQ ERTAB PO PRN (01:26)
[2022-02-03 04:38] LABS: HEMATOCRIT 28.1 % (36-48); MEAN CORPUSCULAR HEMOGLOBIN 29.3 pg (27.0-33.0); MEAN CORPUSCULAR HGB CONC 32.4 g/dL (32.0-36.0); MEAN CORPUSCULAR VOLUME 90.4 fL (79-99); RED BLOOD CELL COUNT(AUTO) 3.11 MIL/uL (4.00-5.50); RED CELL DISTRIBUTION WIDTH 13.6 % (11.0-15.5); WHITE BLOOD COUNT (AUTO) 7.5 K/uL (4.8-10.8)
[2022-02-03 04:59] LABS: CREATININE 0.6 mg/dL (0.5-1.5); POTASSIUM 3.7 mmol/L (3.5-5.1)
[2022-02-03] MEDS: SUCRALFATE 1 GM TABLET NG SCH ×4 (05:01→22:10)
[2022-02-03] MEDS: CEFEPIME HCL 2 GM VIAL IVP SCH ×3 (05:52→21:49)
[2022-02-03] MEDS: IPRATROPIUM/ALBUTEROL SULFATE 3 ML SOLUTION IH SCH ×3 (07:01→16:59)
[2022-02-03] MEDS: BALSAM PERU/CASTOR OIL 60 GM TUBE TP SCH ×3 (09:00→22:16)
[2022-02-03] MEDS: PANTOPRAZOLE 40 MG/VIAL IVP SCH (10:38)
[2022-02-03] MEDS: POTASSIUM CHLORIDE 10% ELIXIR 20 MEQ/15 ML UDCUP PO PRN ×2 (14:55→17:16)
[2022-02-03] MEDS: HALOPERIDOL INJ 5 MG/ML VIAL IV PRN (21:49)
[2022-02-03] MEDS: BACITRACIN 28.4 GM OINT TP SCH (21:51)
[2022-02-03] MEDS: HYDRALAZINE 20MG/ML VIAL IV PRN (22:11)
[2022-02-04] MEDS: IPRATROPIUM/ALBUTEROL SULFATE 3 ML SOLUTION IH SCH ×3 (00:10→11:19)
[2022-02-04 03:30] VITALS: BP 158/69
[2022-02-04 04:30] LABS: HEMATOCRIT 28.1 % (36-48); MEAN CORPUSCULAR HEMOGLOBIN 29.2 pg (27.0-33.0); MEAN CORPUSCULAR HGB CONC 32.7 g/dL (32.0-36.0); MEAN CORPUSCULAR VOLUME 89.2 fL (79-99); RED BLOOD CELL COUNT(AUTO) 3.15 MIL/uL (4.00-5.50); RED CELL DISTRIBUTION WIDTH 13.7 % (11.0-15.5); WHITE BLOOD COUNT (AUTO) 6.6 K/uL (4.8-10.8)
[2022-02-04 04:41] LABS: CREATININE 0.5 mg/dL (0.5-1.5); POTASSIUM 3.3 mmol/L (3.5-5.1)
[2022-02-04] MEDS: SUCRALFATE 1 GM TABLET NG SCH ×4 (05:22→16:01)
[2022-02-04] MEDS: CEFEPIME HCL 2 GM VIAL IVP SCH ×2 (06:18→14:30)
[2022-02-04 08:30] VITALS: BP 163/73
[2022-02-04] MEDS: LACTATED RINGERS 1000ML 1,000 ML IV SCH (08:45)
[2022-02-04] MEDS ORDERED: PANTOPRAZOLE 40 MG TAB DR PO SCH (09:00)
[2022-02-04 11:00] VITALS: BP 123/57
[2022-02-04] MEDS: BALSAM PERU/CASTOR OIL 60 GM TUBE TP SCH ×2 (11:02→14:30)
[2022-02-04] MEDS: BACITRACIN 28.4 GM OINT TP SCH (11:02)
[2022-02-04] MEDS ORDERED: CEFEPIME HCL 1 GM VIAL ONE (14:29)
[2022-02-04] MEDS: KCL 20 MEQ ERTAB PO PRN ×2 (16:01→16:02)
== END 2022-02-04 18:00 | disposition home or self-care (01) | DRG 917 ==
LOC: EDH 03:09 → EDHIP 07:05 → 2CH 11:00 → 3DH 01-30 22:30
PROVIDERS: ADMIT Hospitalist; ATTEND Hospitalist
PROC: 5A1945Z Respiratory Ventilation, 24-96 Consecutive Hours (ICD-10-PCS; principal; 2022-01-26)
PROC: 0BH17EZ Insertion of Endotracheal Airway into Trachea, Via Natural or Artificial Opening (ICD-10-PCS; 2022-01-26)
PROC: 0RSJXZZ Reposition Right Shoulder Joint, External Approach (ICD-10-PCS; 2022-01-26)
DX: T39.1X1A Poisoning by 4-Aminophenol derivatives, accidental (unintentional), initial encounter (principal); A41.9 Sepsis, unspecified organism; J96.01 Acute respiratory failure with hypoxia; E43 Unspecified severe protein-calorie malnutrition; G92.8 Other toxic encephalopathy; J18.9 Pneumonia, unspecified organism; K92.2 Gastrointestinal hemorrhage, unspecified; M62.82 Rhabdomyolysis; D72.810 Lymphocytopenia; E87.6 Hypokalemia; F41.9 Anxiety disorder, unspecified; R31.9 Hematuria, unspecified; Z20.822 Contact with and (suspected) exposure to COVID-19; F20.9 Schizophrenia, unspecified; L89.322 Pressure ulcer of left buttock, stage 2; L89.312 Pressure ulcer of right buttock, stage 2; I11.9 Hypertensive heart disease without heart failure; E66.9 Obesity, unspecified; D64.9 Anemia, unspecified; F32.9 Major depressive disorder, single episode, unspecified; S50.811A Abrasion of right forearm, initial encounter; S50.812A Abrasion of left forearm, initial encounter; R53.81 Other malaise; N19 Unspecified kidney failure; E11.9 Type 2 diabetes mellitus without complications; Z82.3 Family history of stroke; Z82.5 Family history of asthma and other chronic lower respiratory diseases; Z82.0 Family history of epilepsy and other diseases of the nervous system; Z83.3 Family history of diabetes mellitus; Z82.49 Family history of ischemic heart disease and other diseases of the circulatory system; S43.004A Unspecified dislocation of right shoulder joint, initial encounter; X58.XXXA Exposure to other specified factors, initial encounter; Y93.89 Activity, other specified; Y92.89 Other specified places as the place of occurrence of the external cause; Y99.8 Other external cause status; Z79.899 Other long term (current) drug therapy; Z74.01 Bed confinement status; Z68.32 Body mass index [BMI] 32.0-32.9, adult
CPT/HCPCS: 31500; 36415; 36600; 70450; 70486; 71045; 71260; 72125; 73030; 73660; 74018; 74177; 80048; 80053; 80076; 80202; 80305; 81001; 82140; 82270; 82271; 82435; 82550; 82803; 82947; 82948; 83605; 83735; 83880; 84100; 84132; 84145; 84295; 84443; 84484; 85014; 85018; 85025; 85027; 85610; 85651; 85730; 87040; 87088; 87635; 87804; 92610; 93005; 93970; 94002; 94003; 94640; 94664; 99291; C9113; C9803; G0378; G0481; J0132; J0360; J0692; J1200; J1630; J2060; J2405; J2543; J2704; J2920; J2930; J3010; J3370; J3411; J3475; J3480; J3486; J3490; J7030; J7060; J7120; Q9967

== ENCOUNTER 2022-07-03 05:30 | Observation (INO) | payer OTHER, MEDICARE ==
[2022-07-02 12:18] LABS: BASOPHILS % (AUTO) 0.3 % (0.0-5.0); EOSINOPHILS % (AUTO) 0.2 % (0.0-8.0); MEAN CORPUSCULAR HEMOGLOBIN 29.5 pg (27.0-33.0); MEAN CORPUSCULAR HGB CONC 33.1 g/dL (32.0-36.0); MEAN CORPUSCULAR VOLUME 89.1 fL (79-99); MONOCYTES % (AUTO) 4.2 % (3.0-13.0); PLATELET COUNT (AUTO) 244 K/uL (130-400); RED BLOOD CELL COUNT(AUTO) 4.04 MIL/uL (4.00-5.50); WHITE BLOOD COUNT (AUTO) 6.5 K/uL (4.8-10.8)
[2022-07-02 12:40] LABS: INR 0.93 (0.85-1.15); PROTHROMBIN TIME 10.1 SEC (9.6-11.6)
[2022-07-02 12:41] LABS: PARTIAL THROMBOPLASTIN TIME 24.7 SEC (26.3-35.5)
[~2022-07-03] VITALS: Ht 151.1 cm; Wt 71.7 kg
[2022-07-03] VITALS (26 sets, daily range): BP systolic 119–185; BP diastolic 54–111
[~2022-07-03 05:30] MED LIST changes: -ASPI-1114 PO; -BENZ2TAB10 PO; +CITA10TA89 PO; -DONE10TA43 PO; +DONE23TA14 PO; -FLUO40CA7 PO; +MEMA10TA55 PO; +MIRT7.5T11 PO; +MULT-1250 PO; -MULT-1290 PO; -TRAZ-253 PO
[2022-07-03] MEDS ORDERED: 0.9%NACL 1000ML 1,000 ML IV ONE (07:43)
[2022-07-03] MEDS ORDERED: CEFAZOLIN SODIUM 1 GM VIAL ONE (07:43)
[2022-07-03 08:43] LABS: CREATININE 0.8 mg/dL (0.5-1.5); POTASSIUM 4.2 mmol/L (3.5-5.1)
[2022-07-03] MEDS ORDERED: ONDANSETRON 4MG INJ ONE ×2 (10:09→13:24)
[2022-07-03] MEDS ORDERED: PROPOFOL 10 MG/ML 20ML VIAL IV ONE (10:09)
[2022-07-03] MEDS ORDERED: FENTANYL CITRATE PF 50 MCG/1 ML 2ML VIAL ONE ×2 (10:10→11:39)
[2022-07-03] MEDS ORDERED: CEFAZOLIN SODIUM 2 GM VIAL IV ONE (10:17)
[2022-07-03] MEDS ORDERED: GLYCOPYRROLATE 1 MG/5 ML SYRINGE ONE (10:37)
[2022-07-03] MEDS ORDERED: ROCURONIUM BROMIDE 10MG/1ML 5ML VL ONE (11:25)
[2022-07-03] MEDS ORDERED: HYDRALAZINE 20MG/ML VIAL ONE (12:34)
[2022-07-03] MEDS ORDERED: MIDAZOLAM HCL 1 MG/ML 2ML VIAL ONE (12:55)
[2022-07-03] MEDS ORDERED: HYDROMORPHONE 1 MG INJ ONE (12:56)
[2022-07-03] MEDS ORDERED: BISACODYL 10 MG SUPP.RECT RC PRN (14:00)
[2022-07-03] MEDS ORDERED: MEPERIDINE-PF 75 MG/ML SYG IM PRN (14:00)
[2022-07-03] MEDS ORDERED: IBUPROFEN 600 MG TABLET PO PRN (14:00)
[2022-07-03] MEDS ORDERED: PROMETHAZINE HCL 25 MG/ML 1ML AMPULE IM PRN ×2 (14:00)
[2022-07-03] MEDS ORDERED: ONDANSETRON 4MG INJ IVP PRN (14:00)
[2022-07-03] MEDS: INSULIN HUMULIN R 100 UNIT/ML 3ML SQ SCH ×2 (16:30→21:00)
[2022-07-03] MEDS: LACTATED RINGERS 1000ML 1,000 ML IV SCH (17:17)
[2022-07-03] MEDS ORDERED: NON-FORMULARY MEDICATION 1 EACH (Mirtazapine 7.5 MG) PO SCH (21:00)
[2022-07-03] MEDS ORDERED: DONEPEZIL HCL 23 MG PO SCH (21:00)
[2022-07-03] MEDS ORDERED: NON-FORMULARY MEDICATION 1 EACH (Citalopram Hydrobromide (Citalopram HBr) 10 MG) PO SCH (21:00)
[2022-07-03] MEDS ORDERED: NON-FORMULARY MEDICATION 1 EACH (Memantine HCl 10 MG) PO SCH (21:00)
[2022-07-03] MEDS: SIMETHICONE 80 MG TAB.CHEW PO PRN (21:12)
[2022-07-03] MEDS: DOCUSATE SODIUM 100 MG CAP PO PRN (21:12)
[2022-07-03] MEDS: MIRTAZAPINE 15 MG TABLET PO SCH (21:46)
[2022-07-03] MEDS: CITALOPRAM 20 MG TABLET PO SCH (21:46)
[2022-07-03] MEDS: MEMANTINE HCL 5 MG TABLET PO SCH (21:46)
[2022-07-03] MEDS: ACETAMINOPHEN WITH CODEINE 1 TAB TAB PO PRN (23:05)
[2022-07-04] VITALS (7 sets, daily range): BP systolic 115–187; BP diastolic 45–85
[2022-07-04] MEDS: LACTATED RINGERS 1000ML 1,000 ML IV SCH ×2 (01:10→09:09)
[2022-07-04] MEDS ORDERED: HYDROCODONE/ACETAMINOPHEN 5/325 MG TAB PO PRN (02:30)
[2022-07-04 05:31] LABS: HEMATOCRIT 28.7 % (36-48); MEAN CORPUSCULAR HEMOGLOBIN 29.7 pg (27.0-33.0); MEAN CORPUSCULAR HGB CONC 33.4 g/dL (32.0-36.0); MEAN CORPUSCULAR VOLUME 88.9 fL (79-99); RED BLOOD CELL COUNT(AUTO) 3.23 MIL/uL (4.00-5.50); RED CELL DISTRIBUTION WIDTH 14.3 % (11.0-15.5); WHITE BLOOD COUNT (AUTO) 7.7 K/uL (4.8-10.8)
[2022-07-04] MEDS: ACETAMINOPHEN WITH CODEINE 1 TAB TAB PO PRN (06:40)
[2022-07-04] MEDS: INSULIN HUMULIN R 100 UNIT/ML 3ML SQ SCH ×4 (07:30→21:00)
[2022-07-04] MEDS ORDERED: NON-FORMULARY MEDICATION 1 EACH (Multivits-Min/Iron/FA/Lutein (Centrum Silver Women Tablet PO SCH (09:00)
[2022-07-04] MEDS: FERROUS SULFATE 325 MG TABLET.DR PO SCH ×2 (09:11→21:20)
[2022-07-04] MEDS: METFORMIN HCL 500 MG TABLET PO SCH ×2 (09:11→18:45)
[2022-07-04] MEDS: NITROFURANTOIN MONOHYD/M-CRYST 100 MG CAPSULE PO SCH ×2 (09:12→21:20)
[2022-07-04] MEDS: SIMETHICONE 80 MG TAB.CHEW PO PRN (09:12)
[2022-07-04] MEDS: MULTIVITAMIN TABLET PO SCH (09:12)
[2022-07-04] MEDS: LOSARTAN 25 MG TABLET PO SCH (09:12)
[2022-07-04] MEDS: DOCUSATE SODIUM 100 MG CAP PO PRN ×2 (09:12→21:20)
[2022-07-04] MEDS: IBUPROFEN 800 MG TAB PO PRN (09:12)
[2022-07-04] MEDS: CITALOPRAM 20 MG TABLET PO SCH ×2 (09:13→21:19)
[2022-07-04] MEDS: MEMANTINE HCL 5 MG TABLET PO SCH ×2 (09:13→21:21)
[2022-07-04] MEDS ORDERED: DONEPEZIL HCL 5 MG TAB PO SCH (21:00)
[2022-07-04] MEDS: MIRTAZAPINE 15 MG TABLET PO SCH (21:20)
[2022-07-05] MEDS ORDERED: ACETAMINOPHEN WITH CODEINE 1 TAB TAB PO PRN (00:30)
[2022-07-05 03:57] VITALS: BP 148/62
[2022-07-05] MEDS: INSULIN HUMULIN R 100 UNIT/ML 3ML SQ SCH (07:19)
[2022-07-05 07:28] VITALS: BP 143/60
[2022-07-05] MEDS: MULTIVITAMIN TABLET PO SCH (08:34)
[2022-07-05] MEDS: IBUPROFEN 800 MG TAB PO PRN (08:34)
[2022-07-05] MEDS: SIMETHICONE 80 MG TAB.CHEW PO PRN (08:34)
[2022-07-05] MEDS: DOCUSATE SODIUM 100 MG CAP PO PRN (08:34)
[2022-07-05] MEDS: NITROFURANTOIN MONOHYD/M-CRYST 100 MG CAPSULE PO SCH (08:34)
[2022-07-05] MEDS: FERROUS SULFATE 325 MG TABLET.DR PO SCH (08:35)
[2022-07-05] MEDS: LOSARTAN 25 MG TABLET PO SCH (08:35)
[2022-07-05] MEDS: CITALOPRAM 20 MG TABLET PO SCH (08:35)
[2022-07-05] MEDS: MEMANTINE HCL 5 MG TABLET PO SCH (08:35)
[2022-07-05] MEDS: METFORMIN HCL 500 MG TABLET PO SCH (08:35)
== END 2022-07-05 10:25 | disposition home or self-care (01) ==
LOC: DAH 05:30 → WSH 05:31
PROVIDERS: ADMIT Obstetrics & Gynecology; ATTEND Obstetrics & Gynecology
DX: N81.4 Uterovaginal prolapse, unspecified (principal); Z20.822 Contact with and (suspected) exposure to COVID-19; N39.3 Stress incontinence (female) (male); K46.9 Unspecified abdominal hernia without obstruction or gangrene; F03.90 Unspecified dementia, unspecified severity, without behavioral disturbance, psychotic disturbance, mood disturbance, and anxiety; N81.3 Complete uterovaginal prolapse; Z79.899 Other long term (current) drug therapy; Z98.890 Other specified postprocedural states
CPT/HCPCS: 85025; 85610; 85730; 86850; 86900; 86901; 87426; 36415 ×3; 93005; 58263; 57265; 57288; 96374; 96372; 80048; 82948 ×8; 88305; 88342; 88341; 85027; A6260; G0378 ×52; G0379; A4510; A4663; A4351; A4606; A4344; J0690 ×2; J3010 ×2; J1170; J3490 ×2; J7030; J2550; J0360; J2250; J2704; J2405 ×2; J2175; C1771; A4215; A4223; A4222; A4221; J7120 ×2; A4600

== ENCOUNTER 2022-07-07 15:17 | Emergency (ER) | payer OTHER, MEDICARE ==
[~2022-07-07] VITALS: Ht 149.9 cm; Wt 71.7 kg
[2022-07-07 15:18] VITALS: BP 181/74
== END 2022-07-07 18:45 | disposition home or self-care (01) ==
LOC: EDH 15:17
DX: R33.9 Retention of urine, unspecified (principal); T83.9XXA Unspecified complication of genitourinary prosthetic device, implant and graft, initial encounter; F03.90 Unspecified dementia, unspecified severity, without behavioral disturbance, psychotic disturbance, mood disturbance, and anxiety; E11.9 Type 2 diabetes mellitus without complications; I10 Essential (primary) hypertension; Z98.890 Other specified postprocedural states; Z79.899 Other long term (current) drug therapy; Z79.84 Long term (current) use of oral hypoglycemic drugs
CPT/HCPCS: 51702

== ENCOUNTER 2024-02-11 23:34 | Emergency (ER) | payer OTHER, MEDICARE ==
[~2024-02-11] VITALS: Ht 147.3 cm; Wt 68.5 kg
[~2024-02-11 23:34] MED LIST changes: +CITA-106 PO; -CITA10TA89 PO; +MEMA10TA21 PO; -MEMA10TA55 PO
[2024-02-12 00:02] LABS: BASOPHILS # (AUTO) 0.05 K/uL (0.00-0.20); BASOPHILS % (AUTO) 0.4 % (0.0-5.0); EOSINOPHILS # (AUTO) 0.03 K/uL (0.00-0.70); EOSINOPHILS % (AUTO) 0.2 % (0.0-8.0); HEMATOCRIT 32.8 % (36-48); IMMATURE GRANULOCYTE ABSOLUTE 0.08 K/uL (0-1); LYMPHOCYTES # (AUTO) 0.9 K/uL (1.0-4.8); LYMPHOCYTES % (AUTO) 7.2 % (21.0-51.0); MEAN CORPUSCULAR HEMOGLOBIN 31.7 pg (27.0-33.0); MEAN CORPUSCULAR HGB CONC 35.4 g/dL (32.0-36.0); MEAN CORPUSCULAR VOLUME 89.6 fL (79-99); MONOCYTES # (AUTO) 0.6 K/uL (0.1-1.0); MONOCYTES % (AUTO) 4.4 % (3.0-13.0); NEUTROPHILS # (AUTO) 11.2 K/uL (1.8-7.7); NEUTROPHILS % (AUTO) 87.2 % (40.0-77.0); PLATELET COUNT (AUTO) 283 K/uL (130-400); RED BLOOD CELL COUNT(AUTO) 3.66 MIL/uL (4.00-5.50); RED CELL DISTRIBUTION WIDTH 12.2 % (11.0-15.5); WHITE BLOOD COUNT (AUTO) 12.9 K/uL (4.8-10.8)
[2024-02-12 00:27] LABS: WBC MORPHOLOGY CONSISTENT W/DIFF
[2024-02-12 00:33] LABS: ALBUMIN 3.2 g/dL (3.5-5.0); BILIRUBIN,TOTAL 0.4 mg/dL (0.2-1.0); CREATININE 0.8 mg/dL (0.5-1.0); POTASSIUM 3.6 mmol/L (3.5-5.1); TOTAL PROTEIN, SERUM 6.6 g/dL (6.0-8.3)
[2024-02-12 00:39] LABS: INR <= 0.93 (0.85-1.15); PROTHROMBIN TIME 10.9 SEC (9.6-11.6)
[2024-02-12 00:40] LABS: PARTIAL THROMBOPLASTIN TIME 26.2 SEC (26.3-35.5)
[2024-02-12] MEDS: 0.9%NACL 1000ML 1,000 ML IV ONE (00:56)
[2024-02-12] MEDS: 0.9%NACL 1000ML 2,000 ML IV ONE (00:59)
[2024-02-12 02:24] LABS: APPEARANCE,URINE CLEAR (CLEAR); BILIRUBIN,URINE NEGATIVE (NEGATIVE); COLOR,URINE COLORLESS (YELLOW); GLUCOSE, URINE (UA) NEGATIVE (NEGATIVE); KETONES,URINE NEGATIVE (NEGATIVE); LEUKOCYTE ESTERASE ,URINE NEGATIVE Leu/uL (NEGATIVE); NITRATE,URINE NEGATIVE (NEGATIVE); OCCULT BLOOD,URINE NEGATIVE (NEGATIVE); PH,URINE 6.5 (5.0-8.0); PROTEIN,URINE NEGATIVE (NEGATIVE); UROBILINOGEN,URINE 0.2 mg/dL (0.2-1.0)
[2024-02-12 02:24] LABS: CREATININE 0.7 mg/dL (0.5-1.0); POTASSIUM 3.8 mmol/L (3.5-5.1)
[2024-02-12 02:25] LABS: RBC,URINE 0-1 /HPF (0-1); SQUAMOUS EPITHELIAL CELL,UR RARE /HPF (0-2)
[2024-02-12 02:33] LABS: AMPHET/METH SCREEN,URINE NEGATIVE (NEGATIVE); BARBITURATE SCREEN, URINE NEGATIVE (NEGATIVE); BENZODIAZEPINES SCREEN,URINE NEGATIVE (NEGATIVE); CANNABINOID SCREEN,URINE NEGATIVE (NEGATIVE); COCAINE SCREEN,URINE NEGATIVE (NEGATIVE); OPIATE SCREEN,URINE NEGATIVE (NEGATIVE); PHENCYCLIDINE SCREEN,URINE NEGATIVE (NEGATIVE)
[2024-02-12 02:45] VITALS: BP 167/67; PULSE 62; RESP 18; O2SAT 98
== END 2024-02-12 03:03 | disposition home or self-care (01) ==
LOC: EDH 23:34
DX: R56.9 Unspecified convulsions (principal); E86.0 Dehydration; E11.9 Type 2 diabetes mellitus without complications; E78.00 Pure hypercholesterolemia, unspecified; F03.90 Unspecified dementia, unspecified severity, without behavioral disturbance, psychotic disturbance, mood disturbance, and anxiety; I10 Essential (primary) hypertension; Z79.899 Other long term (current) drug therapy; Z90.710 Acquired absence of both cervix and uterus
CPT/HCPCS: 99284; 70450; 82550; 80053; 80305; 85025; 85610; 85730; 83605; 84146; 81001; 36415 ×2; 96360; 71045; 96361; 80048; J7030 ×2

== ENCOUNTER 2025-05-21 05:03 | Emergency (ER) | payer OTHER, MEDICARE ==
[~2025-05-21] VITALS: Ht 152.4 cm; Wt 66.2 kg
--- NOTE | 2025-05-21 05:26 | ERN ---
General Chief Complaint: Mechanical Fall Stated Complaint: C/O LACERATION TO FOREHEAD, LEFT SIDE Time Seen by MD: 05:23 History of Present Illness Initial Comments 75-year-old female was bending down and leaning forward to pick something up when she fell forward and cut her left forehead just above her left eyebrow. She comes in to have the laceration repaired. She states that she had a tetanus shot this past year. Allergies: Coded Allergies: No Known Drug Allergies (Verified Allergy, Unknown, 03/31/15) Home Meds Reported Medications Citalopram Hydrobromide (Celexa 20Mg Tab) 20 Mg Tablet, 1 TAB PO DAILY 09/11/23 Multivits-Min/Iron/FA/Lutein (Centrum Silver Women Tablet) 1 Each Tablet, 1 EACH PO DAILY, TAB 07/02/22 Memantine HCl (Memantine HCl) 10 Mg Tablet, 10 MG PO BID, TAB 07/02/22 Donepezil HCl (Donepezil HCl) 23 Mg Tablet, 23 MG PO HS, TAB 07/02/22 Mirtazapine (Mirtazapine) 7.5 Mg Tablet, 7.5 MG PO HS, TAB 01/26/22 Metformin HCl (Metformin HCl) 500 Mg Tablet, 500 MG PO BIDMEALS, TAB 07/13/21 Losartan Potassium (Losartan Potassium) 25 Mg Tablet, 25 MG PO DAILY, TAB 07/13/21 Past Medical History Past Medical History: Diabetes-Type II, Hypertension, Other Medical History Other: ALZHEIMER'S Past Surgical History: Unknown Family History Family History: Negative Social History Social History: Lives with family EENTM: (-) eye pain, (-) blurred vision, (-) tearing, (-) double vision, (-) ear pain, (-) ear discharge, (-) nose pain, (-) nose congestion, (-) throat pain, (-) Throat swelling, (-) mouth pain, (-) tooth pain, (-) mouth swelling, (-) other documentation Neuro: (-) altered mental status, (-) headache, (-) syncope, (-) paralysis, (-) numbness, (-) seizure, (-) pre-existing deficit, (-) tremors, (-) weakness, (-) dizziness, (-) slurred speech, (-) vertigo, (-) other documentation Physical Exam Physical Exam Dictation The left forehead laceration is full-thickness with exposed muscle underneath. There are no foreign objects inside the incision. No step-offs no evidence of fractures. No visual disturbances able to move her left eye in all directions. MDM I will repair the laceration with a Dermabond. I asked the patient's why the patient got a tetanus shot in the past year and he did not know. He guessed it was because of regular scheduled booster but he was not sure. Therefore I gave her a tetanus shot. ED Course Orders Procedure Category Date Status Time Dermabond (Dermabond) PHA 05/21/25 Complete 05:30 Dermabond (Dermabond) PHA 05/21/25 Complete 05:25 Current Medications Medications (Trade) Dose Ordered Sig/David Route PRN Reason Start Time Stop Time Status Last Admin Dose Admin Octyl Cyanoacrylate (Dermabond) 1 each ONCE ONCE TP 05/21/25 05:30 05/21/25 05:31 DC Octyl Cyanoacrylate (Dermabond) 1 each STK-MED ONCE TP 05/21/25 05:25 05/21/25 05:25 DC Vital Signs Date Time Temp Pulse Resp B/P (MAP) Pulse Ox O2 Delivery O2 Flow Rate FiO2 05/21/25 05:04 98.2 108 20 140/77 100 Room Air Procedure Dictation Patient's left forehead laceration closed easily with Dermabond. Total incision length 3 cm. Placed a bandage over the incision. DX & DISP Disposition: Discharge Departure Impression: Primary Impression: Forehead laceration Condition: Stable Additional Instructions: Please return to the emergency room if you see signs or symptoms of an infection such as fevers chills increased redness increased swelling or discharge from the incision. Please do not take any showers or baths for at least 24 hours. After that showers are okay but avoid soaking baths or swimming or Jacuzzi he has for least a week to give time for the incision to heal. Please follow-up with your primary care physician in a week to be sure the laceration is healing well. If you need you can take ibuprofen or Tylenol for pain. Referrals: JOSEY KENNEY DO (PCP) BRIONNA CAVAZOS MD May 21, 2025 05:26
[2025-05-21] MEDS: OCTYL 2-CYANOACRYLATE 1 EACH TP ONE ×2 (05:52→06:01)
--- NOTE | 2025-05-21 05:52 | NUR ---
LAC CLEANED AND DRIED BY ED RN. ED MD USED DERMABOND AT BEDSIDE TO CLOSE LAC. PT TOLERATED PROCEDURE WELL.
[2025-05-21 06:00] VITALS: BP 139/62; PULSE 90; RESP 17; TEMP 97.9; O2SAT 98
--- NOTE | 2025-05-21 06:10 | NUR ---
DISCHARGE AMBULATION ASSESSMENT UPON DISCHARGE PT AMBULATED TO WHEELCHAIR WITH A STEADY GAIT. PT SHOWED NO SIGNS OF IMBALANCE.
== END 2025-05-21 06:12 | disposition home or self-care (01) ==
LOC: EDH 05:03
DX: S01.81XA Laceration without foreign body of other part of head, initial encounter (principal); E11.9 Type 2 diabetes mellitus without complications; G30.9 Alzheimer's disease, unspecified; I10 Essential (primary) hypertension; Z79.899 Other long term (current) drug therapy; W22.8XXA Striking against or struck by other objects, initial encounter; Y93.89 Activity, other specified; Y92.89 Other specified places as the place of occurrence of the external cause; Y99.8 Other external cause status
CPT/HCPCS: 12013; 90471; 90714; 99283